=== PATIENT | female | born 1950 | race Caucasian/White ===

== ENCOUNTER 2018-03-18 12:18 | Inpatient (IN) | payer MEDICARE ==
[~2018-03-18] VITALS: Ht 165.1 cm; Wt 115.4 kg
[2018-03-18] VITALS (10 sets, daily range): BP systolic 91–139; BP diastolic 45–69
[~2018-03-18 12:18] MED LIST: ADVAIR DISK1 INH; ALBUTEROL SUL0.083 % IN; ALPRAZOLAM0.25 MG PO; BUMETANIDE0.5 MG PO; CETIRIZINE10 MG PO; DIFLUCAN100 M1 PO; DOXEPIN HCL50 MG PO; FOLIC ACID1 MG PO; GABAPENTIN300 MG PO; HYDROCO/APAP1 TA9 PO; LISINOPRIL20 MG PO; Levaquin PO; METOPROL TAR100 MG PO; METOPROL TAR25 MG PO; MUCINEX600 MG PO; NORCO1 TA1 PO; OMEPRAZOLE20 MG PO; OXYBUTYNIN5 MG PO; PERCOCET 5/325M1 TAB PO; PREDNISONE10 MG PO; ROBITUSSIN AC10 ML PO; SINGULAIR PO; STERAPRED DS10 MG PO; VENTOLIN HFA IN; VITAMIN D-35000 UNIT PO; WELLBUTRIN150 M1 PO; XARELTO10 MG PO; XELJANZ XR11 MG; ZESTRIL40 MG PO; ZOLOFT50 MG PO
--- NOTE | 2018-03-18 12:30 | NUR ---
PT STATES THAT SHE HAD AN INFUSION FOR ARTHIRITIS (RITUXAN) ON TUESDAY, TUESDAY NIGHT PT BEGAN HAVING DIRRAHEA, TUESDAY VOMITING BEGAN AND BEGAN HAVING A FEVER ON 03/17/18. PT STATES SHE HAS DIRRAHEA UP TO 5 TIMES A DAY. PT DENIES ANY C/P, SOB OR WEAKNESS. PT STATES BEING UNABLE TO KEEP FOOD DOWN. PT IS AOX4.
[2018-03-18 12:51] LABS: HEMATOCRIT 36.6 % (37.0-47.0); HEMOGLOBIN 11.5 g/dl (12.0-16.0); IMMATURE GRANULOCYTES 0.5 % (0.0-5.0); MEAN CELL VOLUME 92.9 fL CALC (80.0-100.0); MEAN CORPUSCULAR HGB 29.2 pG CALC (26.0-32.0); MEAN CORPUSCULAR HGB CONC 31.4 g/L CALC (32.0-36.0); NEUT# 15.22 thou/uL (2.00-7.15); RED BLOOD COUNT 3.94 mill/uL (4.20-5.60); RED CELL DISTRI WIDTH 14.6 % (11.5-15.5)
[2018-03-18 13:05] LABS: ALBUMIN 3.8 g/dL (3.2-5.0); ALKALINE PHOSPHATASE 109 u/l (38-126); ANION GAP 18 (6-22 (CALC)); BILIRUBIN, TOTAL 0.4 mg/dL (0.0-1.4); BUN 25 mg/dL (8-23); BUN/CREATININE RATIO 24 (12-20 (CALC)); CARBON DIOXIDE 24 mmol/l (22-30); CHLORIDE 103 mmol/l (95-108); GFR 56 ML/MIN (>=60 (CALC)); GFR FOR AFR.AMER. > 60 ML/MIN (>=60 (CALC)); LIPASE 23 u/l (23-300); MAGNESIUM 1.6 mg/dL (1.6-2.3); POTASSIUM 3.9 mmol/l (3.5-5.1); SGOT/AST 21 u/l (9-36); SGPT/ALT 32 u/l (11-66); SODIUM 141 mmol/l (137-146); TOTAL PROTEIN 6.7 g/dL (6.3-8.2)
--- NOTE | 2018-03-18 13:28 | NUR ---
PT ON STRETCHER, IV'S RUNNING IN 3 IV'S, ALL IV'S PATENT WITHOUT PAIN OR EDEMA. PT STATES NAUSEA HAS DECREASED WITH ZOFRAN, PT CONTINUED TO BE PLACED IN [place] POSITION. NO CHANGES IN LOC. NO COMPLAINTS STATED ABOUT POSITIONING OR FEELINGS.
[2018-03-18] MEDS ORDERED: MULTIVITAMI3 (13:53)
[2018-03-18 14:00] LABS: INFLUENZA A NONE DETECTED (NONE DETECT); INFLUENZA B NONE DETECTED (NONE DETECT)
--- NOTE | 2018-03-18 14:03 | NUR ---
PT TO CT ON MONITIOR WITH RN
[2018-03-18 14:05] LABS: URINE BILIRUBIN - DIPSTICK NEGATIVE (NEGATIVE); URINE BLOOD DIPSTICK NEGATIVE (NEGATIVE); URINE COLOR YELLOW; URINE GLUCOSE - DIPSTICK NEGATIVE (NEGATIVE); URINE KETONE NEGATIVE (NEGATIVE); URINE PH 5.5 (4.5-8.0); URINE PROTEIN - DIPSTICK NEGATIVE (NEG-TRACE); URINE UROBILINOGEN - DIPSTICK 0.2 E.U./dL (0.2)
--- NOTE | 2018-03-18 15:03 | NUR ---
PT ON STRECHER, NO COMPLAINTS OR CHANGES STATED
--- NOTE | 2018-03-18 15:10 | NUR ---
CENTRAL LINE PLACED BY MD- VERIFIED PLACEMENT WITH XRAY
[2018-03-18 15:56] LABS: URINE CLARITY TURBID; URINE LEUK ESTERASE SMALL (NEGATIVE); URINE NITRITE - DIPSTICK POSITIVE (Negative)
--- NOTE | 2018-03-18 16:05 | NUR ---
PT RESTING ON STRETCHER WITH FAMILY AT BEDSIDE. FLUIDS AND MEDICATIONS RUNNING, NO COMPLAINTS STATED AT THIS TIME.
[2018-03-18 16:11] LABS: URINE SQUAMOUS EPITHELIAL CELL FEW EPI/hpf (0-FEW); URINE WBC 20-50 WBC/hpf (0-5)
[2018-03-18 16:12] LABS: URINE BACTERIA MANY hpf
--- NOTE | 2018-03-18 16:50 | NUR ---
CHELE SURESH CALLED FOR REPORT. REPORT GIVEN- PT ACCEPTED. AWAITING ACCEPTING PHYSICAN ORDERS.
--- NOTE | 2018-03-18 17:21 | NUR ---
PT RESTING ON STRETCHER STATES THAT SHE IS IN ALOT OF PAIN FROM RA SYMPTOMS MD NOTIFIED
--- NOTE | 2018-03-18 17:24 | NUR ---
unable to scan zofran. zofran 4mg adminstered via iv
--- NOTE | 2018-03-18 17:42 | NUR ---
PT ARRIVED TO ICU VIA STRETCHER FROM ER. BEDSIDE REPORT RECIEVED FROM KERWIN EVANS. PT ALERT AND ORIENTED X 3, ABLE TO MAKE NEEDS KNOW. PERRL, T-100.4, P-82, RR-24, B/P 107/55. PT STATES ALLERGY TO SULFA DRUGS. PT CONTINUES WITH TRIPLE LUMEN TO RIJ WITH LEVOPHED @11MCG/KG/MIN & NS @ 200ML/HR. PT CONTINUES WITH 18G & 20G TO RAC/SL AND 18G TO LAC/SL. NO S/S OF INFILTRATION AT ANY SITE. PT REPORTS LEFT ELBOW PAIN "8" ON SCALE OF 1-10, PT MEDICATED IN ER. 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 BLE WITH MERISSA'S INTACT. LS DIMINISHED THROUGHOUT, BSX4 ACTIVE, PT REPORT LAST WATERY BM 8-3-18. PT DENIES N/V AT THIS TIME. PT DENIES SOB, CHEST PAIN OR DISTRESS AT THIS TIME. O2@2LPM VIA NC WITH SA02@ 100%.PT EDUCATED CLIENT SERVICES ANALYST LIGHT, MEDICAL EQUIP, TV, AND UNIT. BED IN LOWEST POSITION, CALL LIGHT IN REACH, WILL MONITOR.
--- NOTE | 2018-03-18 17:53 | NUR ---
Admission Note Report Given to: CHELE SURESH Transported by: Wheelchair X Stretcher Transported with: X Nurse Transporter X Patent IV X O2 X Consultant Intern TRANSPORTED TO ICU 8 WITHOUT INCIDENT
--- NOTE | 2018-03-18 18:30 | NUR ---
FAMILY AT BEDSIDE
--- NOTE | 2018-03-18 18:42 | NUR ---
DR. BENJAMIN NOTIFIED OF PT PAIN, NEW ORDERS RECIEVED.
--- NOTE | 2018-03-18 19:10 | NUR ---
awake. no resp distress. o2 cont per nc. equipment monitor phototypesetting shows sinus rhythm. rij site in place. #18 rac #20 rac & #18 lac all are saline locks. ns infusing @ 200cchr levo infusing @ 11mcg/kg/min. po fluids encouraged & juan pablo well. fall precautions cont. family @ bedside.
--- NOTE | 2018-03-18 20:15 | NUR ---
t 101.5. tylenol 650mg po given. po fluids encouraged & juan pablo well.
--- NOTE | 2018-03-18 20:15 | NUR ---
roxicodone 5mg po given per request for pain.
--- NOTE | 2018-03-18 20:45 | NUR ---
up to bsc x2 & max assist. voided well.
--- NOTE | 2018-03-18 21:00 | NUR ---
temp 101.8. po fluids encouraged.
--- NOTE | 2018-03-18 21:20 | NUR ---
dr wallace called this fiction and nonfiction prose writer. updated on pts condition. orders rec'd.
--- NOTE | 2018-03-18 22:00 | NUR ---
eyes closed. no apparent distress.
[2018-03-19] VITALS (28 sets, daily range): BP systolic 107–161; BP diastolic 42–83
--- NOTE | 2018-03-19 00:01 | NUR ---
eyes closed. no resp diff. o2 cont per nc.
--- NOTE | 2018-03-19 02:30 | NUR ---
up to bsc with MAX assist x2. has gen joint discomfort. po fluids taken well.
--- NOTE | 2018-03-19 03:15 | NUR ---
c/o joint pain. roxicodone 5mg po given.
--- NOTE | 2018-03-19 04:00 | NUR ---
lab here. blood drawn.
[2018-03-19 05:04] LABS: HEMATOCRIT 32.5 % (37.0-47.0); IMMATURE GRANULOCYTES 0.8 % (0.0-5.0); MEAN CELL VOLUME 94.8 fL CALC (80.0-100.0); MEAN CORPUSCULAR HGB 29.2 pG CALC (26.0-32.0); MEAN CORPUSCULAR HGB CONC 30.8 g/L CALC (32.0-36.0); NEUT# 17.05 thou/uL (2.00-7.15); RED BLOOD COUNT 3.43 mill/uL (4.20-5.60); RED CELL DISTRI WIDTH 14.7 % (11.5-15.5)
--- NOTE | 2018-03-19 05:30 | NUR ---
up to bsc w MAX assist x2. has increasing rheumatoid pain thruput.
--- NOTE | 2018-03-19 06:45 | NUR ---
RECIEVED REPORT FROM DOROTHY RUFFIN. ASSUMED PT CARE.
--- NOTE | 2018-03-19 07:15 | NUR ---
PT ALERT AND ABLE TO MAKE NEEDS KNOWN. PERRL, PT CONTINUES WITH SR WITH OCCAS. PAC/PVC ON TELEMETRY. T-100.7, HR- 97, RR-22, B/P-151/62, SA02 97% ON LM VIA NC. LS WITH SCATTERED WHEEZING THROUGHOUT, NO COUGH NOTED. BSX4 ACTIVE. PT DENIES N/V AT THIS TIME. PT WITH DEPENDENT EDEMA NOTED IN BUE, ELEVATED ON PILLOWS. PT WITH WEAK PATTERNATOR BILAT. TLC @ RIJ WITH NS @ 200ML/HR, NO S/S OF INFILTRATION NOTED. 18G @ RAC, 20G@ RAC, 18G@LAC WITH SL, FLUSHES WITHOUT DIFFICULTY, NO S/S OF INFILTRATION NOTED AT THIS TIME. BED IN LOWEST POSITION, CALL LIGHT IN REACH, WILL MONITOR.
--- NOTE | 2018-03-19 07:30 | NUR ---
PT MEDICATED WITH TYLENOL FOR ELEVATED TEMP AND XANAX PER PT REQUEST FOR ANXIETY. ORDERED. PT TOLERATED WELL, COOL COMPRESS ON FOREHEAD. CALL LIGHT IN REACH, WILL MONITOR.
--- NOTE | 2018-03-19 07:52 | NUR ---
Vancomycin consult Age: 67 years Weight: 112.2 kg Height: 165.1 cm Gender: Female SCR: 1 mg/dl Dosing weight: 79.08 kg IBW: 57.00 kg CRCL (ml/min): 50.5 Pedro (hr-1): 0.046 Half-life (hrs): 15.07 Vd (liters): 78.54 (factor: 0.7 L/kg) Vancomycin 1 gm Q12H to produce a predicted peak of 29 mcg/ml and a predicted trough of 18 mcg/ml based on (Population-based pharmacokinetic analysis).
--- NOTE | 2018-03-19 08:15 | NUR ---
PT SISTER CALLED, CODE RECIEVED, UPDATE GIVEN.
--- NOTE | 2018-03-19 08:30 | NUR ---
REASSESSED FOR TYL. PT TEMP 99.7, COOL CLOTH ON FOREHEAD REPLACED, WILL CONTINUE TO MONITOR. PT STATES FEELING ALITTLE BETTER. RESTING WITH EYES CLOSED. CALL LIGHT IN REACH. WILL MONITOR.
--- NOTE | 2018-03-19 09:30 | NUR ---
IV site 20G @ RAC discontinued, cath intact. No edema , no redness, voices no discomfort.
--- NOTE | 2018-03-19 09:30 | NUR ---
IV site 18G TO RAC discontinued, cath intact. No edema , no redness, voices no discomfort.
--- NOTE | 2018-03-19 10:00 | NUR ---
PT ASSISTED TO BSC, FULL LINEN CHANGE AND COMPLETE BATH WITH BARON CARE GIVEN. PT TOLERATED WELL. PT CONTINUES WITH PAIN, AND DEPENDENT EDEMA TO BUE.. PT ASSISTED BACK TO BED WITH CALL LIGHT IN REACH. WILL MONITOR.
--- NOTE | 2018-03-19 10:15 | NUR ---
PT AT BEDSIDE, SISTER AT BEDSIDE FOR VISIT.
--- NOTE | 2018-03-19 11:53 | NUR ---
DIETARY ON UNIT. PT TRAY SET UP. AFEBRILE. CALL LIGHT IN REACH. WILL MONITOR
--- NOTE | 2018-03-19 14:18 | NUR ---
PT RESTING IN BED, PT MEDICATED FOR PAIN AND ANXIETY, PRN ORDERED PER REQUEST. PT NOTED WITH INCREASED EDEMA TO LEFT HAND, ELEVATED ON PILLOW. PT WEDDING BAND REMAIN ON HAND, NO DISCOLORATION, PT DENIES DISCOMFORT. EDUCATED PT ON RISK OF RING REMAINING ON, PT STATES AT THIS TIME " i DO NOT WANT TO REMOVE OR CUT OFF, THIS HAS HAPPENED BEFORE AND IT WILL BE OK." PT STATES SHE WILL NOTIFY STAFF IF STARTS TO CAUSE DISCOMFORT OR LOSS OF SENSATION. PT CONTINUES WITH IV INFUSING NS @ 200ML/HR TO RIJ. NO S/S OF INFILTRATION NOTED AT THIS TIME. CALL LIGHT IN REACH, WILL CONTINUE TO MONITOR.
--- NOTE | 2018-03-19 15:08 | NUR ---
NEW ORDERS RECIEVED.
--- NOTE | 2018-03-19 15:40 | NUR ---
PT MEDICATED FOR PAIN OF "9" ON 1-10 SCALE WITH PRN ORDERED. PT TOLERATED WELL, WILL MONITOR.
--- NOTE | 2018-03-19 16:10 | NUR ---
PT RESTING IN BED, PT STATES PAIN DOWN TO "3 OR 4" ON 1-10 SCALE. CALL LIGHT IN REACH. WILL MONITOR.
--- NOTE | 2018-03-19 17:00 | NUR ---
DR. BENJAMIN AT BEDSIDE FOR ASSESSMENT AND TO DISCUSS PLAN OF CARE. PT FAMILY REMAINS AT BEDSIDE.
--- NOTE | 2018-03-19 17:30 | NUR ---
ASSISTED PT WITH BEDPAN, VOIDED 175ML. PT RESTING IN BED WITH CALL LIGHT IN REACH.
--- NOTE | 2018-03-19 18:25 | NUR ---
PT FAMILY AT BEDSIDE, PT OFFERS NO COMPLAINTS AT THIS TIME. CALL LIGHT IN REACH, WILL CONTINUE TO MONITOR,
--- NOTE | 2018-03-19 19:10 | NUR ---
awake. no resp diff. o2 cont per nc. hairspring adjuster shows sinus rhythm pacs pvcs. rij #18lac saline locks. po fluids taken well. voids per bedpan. fall precautions cont. family @ bedside.
--- NOTE | 2018-03-19 22:00 | NUR ---
voided per bedpan for 50cc
--- NOTE | 2018-03-19 23:30 | NUR ---
requested bedpan. encouraged pt to void per bsc to ensure an empty bladder. up to bsc x2 assists. voided well.
[2018-03-20] VITALS (10 sets, daily range): BP systolic 103–177; BP diastolic 47–86
--- NOTE | 2018-03-20 02:00 | NUR ---
resting quietly. resps even & unlabored. o distress. o2 cont.
--- NOTE | 2018-03-20 04:00 | NUR ---
blood drawn & sent to lab.
[2018-03-20 04:21] LABS: HEMOGLOBIN 8.7 g/dl (12.0-16.0); IMMATURE GRANULOCYTES 0.7 % (0.0-5.0); MEAN CELL VOLUME 94.3 fL CALC (80.0-100.0); MEAN CORPUSCULAR HGB 29.3 pG CALC (26.0-32.0); MEAN CORPUSCULAR HGB CONC 31.1 g/L CALC (32.0-36.0); NEUT# 10.23 thou/uL (2.00-7.15); RED BLOOD COUNT 2.97 mill/uL (4.20-5.60); RED CELL DISTRI WIDTH 14.8 % (11.5-15.5)
[2018-03-20 04:34] LABS: ANION GAP 12 (6-22 (CALC)); BUN 8 mg/dL (8-23); BUN/CREATININE RATIO 11 (12-20 (CALC)); CARBON DIOXIDE 23 mmol/l (22-30); CHLORIDE 107 mmol/l (95-108); CREATININE 0.7 mg/dL (0.5-1.0); GFR > 60 ML/MIN (>=60 (CALC)); GFR FOR AFR.AMER. > 60 ML/MIN (>=60 (CALC)); POTASSIUM 3.8 mmol/l (3.5-5.1); SODIUM 138 mmol/l (137-146)
--- NOTE | 2018-03-20 06:00 | NUR ---
up to bsc then to chair. juan pablo pedro.
--- NOTE | 2018-03-20 06:45 | NUR ---
RECIEVED REPORT FROM DOROTHY RUFFIN. ASSUMED PT CARE.
--- NOTE | 2018-03-20 07:30 | NUR ---
PT SITTING IN RECLINER, A&OX3, ABLE TO MAKE NEEDS KNOWN.PERRL. PT SR ON TELEMETRY, HR- 89, B/P- 152/66, T- 98.6, SA02@96% ON 2LPM VIA NC. PT CONTINENT OF B&B. ABDOMEN SOFT, NON-TENDER, BSX4 ACTIVE. PT WITH NOTABLE LESS EDEMA TO BUE. PT CONTINUES TO BE MAX ASSIST WITH TRANSFERS. PT STATES PAIN "9" ON 1-1O SCALE "EVERYWHERE" BRITTNEY. BILAT ANKLES. TL @ RIJ FLUSHED WITHOUR DIFFICULTY NOTED AND SL. NO S/S OF INFILTRATION OR INFECTION AT SITE. CALL LIGHT IN REACH, WILL CONTINUE TO MONITOR.
--- NOTE | 2018-03-20 08:05 | NUR ---
DIETARY ON UNIT, BREAKFAST TRAY SET UP.
--- NOTE | 2018-03-20 09:15 | NUR ---
ASSISTED PT TO BSC, THEN BACK TO BED. CALL LIGHT IN REACH. WILL MONITOR.
--- NOTE | 2018-03-20 09:40 | NUR ---
FAMILY ON UNIT AT BEDSIDE.
--- NOTE | 2018-03-20 10:15 | NUR ---
DR. HIGGINBOTHAM AT BEDSIDE FOR ASSESSMENT AND TO DISCUSS PLAN OF CARE. NEW ORDERS RECIEVED.
--- NOTE | 2018-03-20 10:52 | NUR ---
PT OFF UNIT TO MRI.
--- NOTE | 2018-03-20 11:52 | NUR ---
PT BACK ON UNIT FROM MRI, ASSISTED BACK TO RECLINER , LUNCH ARNULFO SET UP . PT TOLERATED WELL. CALL LIGHT IN REACH, WILL MONITOR.
--- NOTE | 2018-03-20 14:00 | NUR ---
PT RESTING IN BED WITH EYES CLOSED, PT OFFERS NO COMPLAINTS AT THIS TIME. CALL LIGHT IN REACH, WILL MONITOR.
--- NOTE | 2018-03-20 16:00 | NUR ---
PT RESTING IN BED, FAMILY AT BEDSIDE. CALL LIGHT IN REACH, WILL MONITOR.
--- NOTE | 2018-03-20 18:22 | NUR ---
PT ASSISTED TO BSC, THEN BACK TO BED, PT TOLERATED WELL. CALL LIGHT IN REACH, WILL MONITOR.
--- NOTE | 2018-03-20 20:15 | NUR ---
SITTING IN RECLINER CHAIR, WITH LEGS ELEVATED. A/O X3, RESPIRATIONS EVEN AND UNLABORED ON O2 @2L VIA NC, LUNG SOUNDS CLEAR WITH DIMINISHED BASES BILAT. TRIPPLE LUMEN TO RIGHT IJ, FLUSHED WITH NO COMPLICATIONS. C/O PAIN TO RIGHT ANKLE WHEN OUT OF BED, DISCUSSED ROXICODONE ORDERED, VOICES UNDERSTANDING. HEART MONITOR SR 90'S. PO FLUIDS IN REACH, ENCOURAGED TO USE CALL LIGHT FOR ASSISTANCE, WILL CONTINUE TO MONITOR.
--- NOTE | 2018-03-20 22:19 | NUR ---
OUT OF RECLINER CHAIR TO BSC WITH MAX ASSISTANCE, VOIDING 100ML OF CLEAR YELLOW URINE, THEN TO BED. CALL LIGHT IN REACH. WILL CONTINUE TO MONITOR.
[2018-03-21] VITALS (12 sets, daily range): BP systolic 117–167; BP diastolic 61–85
--- NOTE | 2018-03-21 01:08 | NUR ---
JANIYA PROVIDED FOR DRY COUGH AT THIS TIME. OOB TO BSC WITH CHAZ URIBE'S ASSISTANCE.
--- NOTE | 2018-03-21 05:25 | NUR ---
MORNING BLOOD WORK DRAWN FROM RIGHT IJ WITH GREAT BLOOD RETURN.
[2018-03-21 05:56] LABS: HEMATOCRIT 26.3 % (37.0-47.0); HEMOGLOBIN 8.1 g/dl (12.0-16.0); MEAN CELL VOLUME 94.3 fL CALC (80.0-100.0); MEAN CORPUSCULAR HGB CONC 30.8 g/L CALC (32.0-36.0); RED BLOOD COUNT 2.79 mill/uL (4.20-5.60); RED CELL DISTRI WIDTH 14.7 % (11.5-15.5)
[2018-03-21 06:07] LABS: ANION GAP 12 (6-22 (CALC)); BUN 10 mg/dL (8-23); BUN/CREATININE RATIO 14 (12-20 (CALC)); CARBON DIOXIDE 27 mmol/l (22-30); CHLORIDE 104 mmol/l (95-108); CREATININE 0.7 mg/dL (0.5-1.0); GFR FOR AFR.AMER. > 60 ML/MIN (>=60 (CALC)); POTASSIUM 4.3 mmol/l (3.5-5.1); SODIUM 138 mmol/l (137-146)
[2018-03-21 06:22] LABS: GFR > 60 ML/MIN (>=60 (CALC))
--- NOTE | 2018-03-21 06:45 | NUR ---
RECIEVED REPORT FROM DOROTHY BAILEY. ASSUMED PT CARE.
--- NOTE | 2018-03-21 07:45 | NUR ---
PT ALERT AND ABLE TO MAKE NEEDS KNOWN. SR WITH OCCASIONAL PAC'/PVC'S NOTED ON TELEMETRY.PERRL, HR-68, B/P-157/87, T-97.4, RR-24, SA02@97% ON 2PLM VIA NC. LS WITH AUDIBLE WHEEZING THROUGHOUT. CONTINENT ON B&b. ABDOMEN SOFT, NON- TENDER. SKIN CDI, R ANKLE SWOLLEN D/T RH FLARE UP (PER PT), ICE PACK PROVIDED PER PT REQUEST. TL TO RIJ SL , FLUSHES WITHOUT DIFFICULTY, NO S/S OF INFILTRATION OR INFECTION AT SITE. CALL LIGHT IN REACH, WILL MONITOR.
--- NOTE | 2018-03-21 08:04 | NUR ---
PT MEDICATED FOR PAIN "9 " ON 1-10 SCALE FOR JOINT PAIN, ORDERED. CALL LIGHT IN REACH, WILL MONITOR.
--- NOTE | 2018-03-21 08:40 | NUR ---
DR. HIGGINBOTHAM AT BEDSIDE FOR ASSESSMENT AND TO DISCUSS PLAN OF CARE.
--- NOTE | 2018-03-21 09:30 | NUR ---
FAMILY AT BEDSIDE, MRI/MRCP RESULTS GIVEN TO PT PER PT REQUEST AND WITH 'S CONSENT, AUTHORAZTION SIGNED BY PT AND PLACED IN CHART. FAMILY ALSO REQUEST PT IS TRANSFERRED TO [facility].
--- NOTE | 2018-03-21 09:50 | NUR ---
DOUGLAS IN NOTIFIED OF CHOICE FOR TRANSFER. "[facility]".
--- NOTE | 2018-03-21 11:00 | NUR ---
MAGNOLIA COLE AT BEDSIDE TO [facility] PLAN OF CARE/DISCHARGE.
--- NOTE | 2018-03-21 12:10 | NUR ---
PT UP TO BSC, COMPLETE BATH, BARON CARE AND MOUTHCARE PROVIDED, FULL LINEN CHANGE. PT THEN ASSISTED TO RECLINER, CALL LIGHT IN REACH, WILL MONITOR.
--- NOTE | 2018-03-21 12:12 | NUR ---
PT RESTING IN RECLINER, 02@2PLM VIA NC CONTINUES. PT OFFERS NO COMPLAINTS AT THIS TIME. CALL LIGHT IN REACH, WILL MONITOR.
--- NOTE | 2018-03-21 13:16 | NUR ---
PT FAMILY BRINGING IN HIGH SUGAR DRINKS. PT EDUCATED ON THE RISKS OF DRINKING REGARDS TO DIET AND DIABETES STABILITY. PT VERBALIZED UNDERSTANDING AND STATED HE WOULDNT DRINK THEM HERE.
--- NOTE | 2018-03-21 13:30 | NUR ---
DR. HIGGINBOTHAM AT BEDSIDE TO [facility] PLAN OF CARE AND DISCHARGE INSTRUCTIONS.
--- NOTE | 2018-03-21 13:51 | NUR ---
CALLED TO SPEAK WITH PT.
--- NOTE | 2018-03-21 13:53 | NUR ---
ASSISTED PT TO BSC, LG BM, SAMPLE OBTAINED FOR OCCULT BLOOD. BARON CARE PROVIDED, PT ASSISTED BACK TO RECLINER, ICE PACK REAPPLIED PER PT REQUEST TO RT ANKLE. CALL LIGHT IN REACH. WILL MONITOR.
--- NOTE | 2018-03-21 14:00 | NUR ---
IV site discontinued, cath intact. No edema , no redness, voices no discomfort.
--- NOTE | 2018-03-21 16:00 | NUR ---
assisted pt to bsc,then assisted back to recliner, call light in reach. pt contniues on 02@2plm via oh. pt continues with a non-productive dry cough. dr. [facility] notified. pt denies chest pain, sob or distress. afebrile. will monitor.
--- NOTE | 2018-03-21 18:15 | NUR ---
PT RESTING IN RECLINER, FAMILY AT BEDSIDE . PT OFFERS NO COMPLAINTS AT THIS TIME. WILL MONITOR
[2018-03-21 18:56] LABS: C. DIFFICILE TOXIN A&B NEGATIVE (NEGATIVE)
--- NOTE | 2018-03-21 19:15 | NUR ---
PT SITTING IN RECLINER CHAIR RESPIRATIONS EVEN AND UNLABORED ON O2 @2L VIA NC, O2 SAT 92%. OUT OF RECLINER CHAIR TO BSC WITH MAX ASSISTANCE, VOIDING CLEAR YELLOW URINE, THEN AMBULATING TO BED. A/O X3, C/O PAIN TO RIGHT ANKLE, RIGHT ANKLE ELEVATED ON TWO PILLOWS, REFUSES MERISSA HOSE TO RIGHT LEG AT THIS ITME. ZOSYN INFUSING TO RIGHT IJ WITH NO COMPLICATIONS. PO FLUIDS IN REACH. HEART MONITOR READING SR 70'S-80'S. ENCOURAGED TO USE CALL LIGHT FOR ASSISTANCE, WILL CONTINUE TO MONITOR.
--- NOTE | 2018-03-21 22:38 | NUR ---
OOB TO BSC WITH MAX ASSISTANCE, VOIDING 300ML CLEAR YELLOW URINE, THEN BACK TO BED. CALL LIGHT IN REACH.
[2018-03-22] VITALS (9 sets, daily range): BP systolic 135–176; BP diastolic 68–84
--- NOTE | 2018-03-22 00:35 | NUR ---
ZOSYN COMPLETELY INFUSED, FLUSHED TRIPPLE LUMEN IJ WITH NO COMPLICATIONS. RESPIRATIONS EVEN AND UNLABORED. LEFT LEG ELEVATED ON PILLOWS, CALL LIGHT IN REACH.
--- NOTE | 2018-03-22 02:00 | NUR ---
RESTING IN SEMIFOWLERS WITH EYES CLOSED, RESPIRATIONS EVEN AND UNLABORED ON O2 @2L VIA NC, O2 SAT 96%. CALL LIGHT IN REACH.
--- NOTE | 2018-03-22 04:55 | NUR ---
MORNING BLOOD WORK DRAWN FROM RIGHT IJ WITH GREAT BLOOD RETURN.
[2018-03-22 05:09] LABS: HEMATOCRIT 28.4 % (37.0-47.0); HEMOGLOBIN 8.8 g/dl (12.0-16.0); MEAN CELL VOLUME 93.4 fL CALC (80.0-100.0); MEAN CORPUSCULAR HGB 28.9 pG CALC (26.0-32.0); RED BLOOD COUNT 3.04 mill/uL (4.20-5.60); RED CELL DISTRI WIDTH 14.6 % (11.5-15.5)
--- NOTE | 2018-03-22 07:23 | NUR ---
REPORT FROM KERWIN BAILEY. INTRODUCED SELF TO PT. C/O RIGHT ANKLE PAIN/SWELLING STARTING LAST NIGHT. R FOOT PROPPED UP ON PILLOW, PT REMOVED MERISSA HOSE FROM RIGHT LEG. DENIES OTHER COMPLAINTS AT THIS TIME. LUNG SOUNDS CLEAR. PT ON 2L NC.
--- NOTE | 2018-03-22 07:43 | NUR ---
CATTLE DRIVER ASSISTED PT TO BSC THEN UP TO BED. BED MADE. BREAKFAST TRAY SERVED.
--- NOTE | 2018-03-22 08:40 | NUR ---
DR HIGGINBOTHAM AT BEDSIDE. PT WILL BE DC TO REHAB TODAY.
--- NOTE | 2018-03-22 09:39 | NUR ---
PT TO SHOWER WITH MARINE STEWARD.
--- NOTE | 2018-03-22 10:25 | NUR ---
PT RETURNED FROM SHOWER. ON MONITORS. WILL CONTINUE TO MONITOR UNTIL DC.
--- NOTE | 2018-03-22 11:54 | NUR ---
PT SITTING UP IN BED, EATING TRAY FOR LUNCH. BREATHING IS EVEN/UNLABORED.
[2018-03-22] MEDS ORDERED: OXYBUTYNIN5 MG PO (12:42)
[2018-03-22] MEDS ORDERED: ALPRAZOLAM0.25 MG PO (12:43)
[2018-03-22] MEDS ORDERED: STERAPRED DS10 MG PO (12:43)
[2018-03-22] MEDS ORDERED: LEVAQUIN750 MG PO (12:44)
[2018-03-22] MEDS ORDERED: LORTAB 5/3255 MG PO (13:07)
--- NOTE | 2018-03-22 14:06 | NUR ---
CENTRAL LINE REMOVED FROM PTS RIGHT IJ. PRESSURE DRESSING APPLIED TO AREA. PT INSTRUCTED TO LIE IN BED x1 HR AFTER REMOVAL.
--- NOTE | 2018-03-22 16:00 | NUR ---
PT TO BSC AGAIN, THEN UP IN CHAIR, DRESSED, READY TO GO TO REHAB. PT REQUESTED ANXIETY MED & SOMETHING "SIMPLE" FOR A HEADACHE. CASE MANAGMENT @BEDSIDE.
--- NOTE | 2018-03-22 16:55 | NUR ---
PT OUT THE DOOR WITH TRANSPORT IN STABLE CONDITION. PT STATES SHE WOULD BE FINE WITHOUT O2 FOR THE RIDE. PT OBSERVED x20 MINS W/OUT O2 WHILE IN THE ER. PT SHOWED NO S/S OF DISTRESS, HOLDING AT 96%. PT SENT WITH O2 TUBING, SUCCESS COACH STATED HE HAD 02 IN THE VAN IF SHE NEEDED IT. PT VERY HAPPY. STATES SHE "REALLY HAD EXCELLENT CARE HERE" AND "APPRECIATES ALL WE DID FOR HER".
--- NOTE | 2018-03-22 17:06 | NUR ---
TOOK HOME EVERYTHING BUT PTS CELLPHONE
--- NOTE | 2018-03-22 17:18 | NUR ---
CALLED REPORT TO ANTIONETTE @ [phone]
== END 2018-03-22 16:55 | DRG 871 ==
LOC: ED 12:18 → ED-I 15:16 → ED 15:34 → ICU 15:35
PROVIDERS: Family Medicine; Internal Medicine; ADMIT General Practice; ATTEND General Practice
PROC: 02HV33Z Insertion of Infusion Device into Superior Vena Cava, Percutaneous Approach (ICD-10-PCS; principal; 2018-03-18)
DX: A41.9 Sepsis, unspecified organism (principal); J18.9 Pneumonia, unspecified organism; N39.0 Urinary tract infection, site not specified; J44.0 Chronic obstructive pulmonary disease with (acute) lower respiratory infection; K52.1 Toxic gastroenteritis and colitis; J44.1 Chronic obstructive pulmonary disease with (acute) exacerbation; J84.9 Interstitial pulmonary disease, unspecified; R65.20 Severe sepsis without septic shock; M06.9 Rheumatoid arthritis, unspecified; I50.9 Heart failure, unspecified; K83.9 Disease of biliary tract, unspecified; D50.9 Iron deficiency anemia, unspecified; D63.8 Anemia in other chronic diseases classified elsewhere; E86.0 Dehydration; R73.03 Prediabetes; Z86.718 Personal history of other venous thrombosis and embolism; T45.1X5A Adverse effect of antineoplastic and immunosuppressive drugs, initial encounter; Z79.52 Long term (current) use of systemic steroids
CPT/HCPCS: G0328; J1650; J1756; Q9967

== ENCOUNTER → 2018-09-28 | Outpatient (REF) | payer MEDICARE ==
[~2018-09-28] MED LIST changes: +GINSENG; +HYDROXYCHLOROQ200 MG PO; +LASIX20 MG PO; +LEVAQUIN750 MG PO; +LORTAB 5/3255 MG PO; +MICRO-K10 ME1 PO; +MILLIPRED5 MG PO; +MULTIVITAMI3; +OXYCODONE/ACETA1 TA8; +VOLTAREN1%GEL TOP
[2018-09-28 15:08] LABS: HEMATOCRIT 35.5 % (37.0-47.0); HEMOGLOBIN 11.2 g/dl (12.0-16.0); IMMATURE GRANULOCYTES 0.7 % (0.0-5.0); MEAN CELL VOLUME 96.2 fL CALC (80.0-100.0); MEAN CORPUSCULAR HGB 30.4 pG CALC (26.0-32.0); MEAN CORPUSCULAR HGB CONC 31.5 g/L CALC (32.0-36.0); NEUT# 9.12 thou/uL (2.00-7.15); RED BLOOD COUNT 3.69 mill/uL (4.20-5.60); RED CELL DISTRI WIDTH 13.3 % (11.5-15.5)
[2018-09-28 15:27] LABS: ALBUMIN 4.1 g/dL (3.2-5.0); BILIRUBIN, TOTAL 0.5 mg/dL (0.0-1.4); C-REACTIVE PROTEIN 0.8 mg/dL (0-0.9); CREATININE 1.2 mg/dL (0.5-1.0); TOTAL PROTEIN 6.7 g/dL (6.3-8.2)
== END | disposition home or self-care (01) ==
LOC: LAB 14:24
PROVIDERS: ATTEND Internal Medicine Rheumatology
DX: M05.79 Rheumatoid arthritis with rheumatoid factor of multiple sites without organ or systems involvement (principal); Z79.899 Other long term (current) drug therapy

== ENCOUNTER → 2018-10-10 | Outpatient (REF) | payer MEDICARE ==
[2018-10-10 12:29] LABS: BARBITURATES NEGATIVE (NEGATIVE); COCAINE NEGATIVE (NEGATIVE); METHADONE NEGATIVE (NEGATIVE); OXCYCODONE NEGATIVE (NEGATIVE); TETRAHYDROCANNABIONOL NEGATIVE (NEGATIVE); TRICYLIC ANTIDEPRESSANTS NEGATIVE (NEGATIVE)
[2018-10-10 12:44] VITALS: BP 146/94
== END | disposition home or self-care (01) ==
LOC: PAIN/MGT 12:06
PROVIDERS: ATTEND Anesthesiology Pain Medicine
DX: Z51.81 Encounter for therapeutic drug level monitoring (principal); Z79.891 Long term (current) use of opiate analgesic

== ENCOUNTER → 2018-10-30 | Outpatient (REF) | payer MEDICARE | END | disposition home or self-care (01) | LOC: DI 11:49 | DX: M54.17 Radiculopathy, lumbosacral region (principal); M51.36 Other intervertebral disc degeneration, lumbar region; Z96.642 Presence of left artificial hip joint; Z47.1 Aftercare following joint replacement surgery ==

== ENCOUNTER 2019-06-02 19:26 | Emergency (ER) | payer MEDICARE ==
[~2019-06-02] VITALS: Ht 165.1 cm; Wt 104.5 kg
[2019-06-02] MEDS ORDERED: GENTAMICIN0.31 OS (19:54)
[2019-06-02 20:46] VITALS: BP 127/63
== END 2019-06-02 20:43 | disposition home or self-care (01) ==
LOC: ED 19:26
DX: S05.02XA Injury of conjunctiva and corneal abrasion without foreign body, left eye, initial encounter (principal); I10 Essential (primary) hypertension; W01.198A Fall on same level from slipping, tripping and stumbling with subsequent striking against other object, initial encounter; Y93.H2 Activity, gardening and landscaping; Y92.007 Garden or yard of unspecified non-institutional (private) residence as the place of occurrence of the external cause

== ENCOUNTER 2020-02-14 06:41 | Day surgery (SDC) | payer MEDICARE ==
[~2020-02-14 06:41] MED LIST changes: +ATIVAN1 M1 PO; +DITROPAN5 MG/TA1 PO; +ESOMEPRAZOLE MA40 MG PO; +FERROUS SULFAT325 MG PO; -GABAPENTIN300 MG PO; +GENTAMICIN0.31 OS; +METFORMIN500 M2 PO; +MULTI VIT PO; +NEURONTIN300 MG PO; +RINVOQ PO; +SPIRIVA HANDIH18 MCG IN; +TIZANIDINE2 MG PO; +WELLBUTRIN XL300 MG PO; +XANAX0.5 MG PO; +XYZAL ALLERGY 245 MG PO
[2020-02-14 08:54] VITALS: BP 144/67
== END 2020-02-14 09:12 | disposition home or self-care (01) ==
LOC: ENDO 06:41 → ORM 08:00 → ENDO 09:12
PROVIDERS: ATTEND Surgery
PROC: 0DBL8ZX Excision of Transverse Colon, Via Natural or Artificial Opening Endoscopic, Diagnostic (ICD-10-PCS; principal; 2020-02-14)
DX: D64.9 Anemia, unspecified (principal); D12.3 Benign neoplasm of transverse colon; K57.30 Diverticulosis of large intestine without perforation or abscess without bleeding; K64.8 Other hemorrhoids; I10 Essential (primary) hypertension; E11.9 Type 2 diabetes mellitus without complications; Z11.59 Encounter for screening for other viral diseases

== ENCOUNTER 2021-11-23 11:42 | Emergency (ER) | payer MEDICARE ==
[~2021-11-23] VITALS: Ht 162.6 cm; Wt 77.2 kg
[2021-11-23 11:52] VITALS: BP 149/71
[2021-11-23 12:01] VITALS: BP 145/70
[2021-11-23 12:30] VITALS: BP 149/73
[2021-11-23 12:45] VITALS: BP 137/67
[2021-11-23 13:00] VITALS: BP 142/63
[2021-11-23 14:30] VITALS: BP 142/63
[2021-11-23] MEDS ORDERED: MEDDOSEPAK PO (14:59)
[2021-11-23] MEDS ORDERED: HYDROCO/APAP1 TA9 PO (14:59)
== END 2021-11-23 15:12 | disposition home or self-care (01) ==
LOC: ED 11:42
DX: S70.02XA Contusion of left hip, initial encounter (principal); S20.212A Contusion of left front wall of thorax, initial encounter; W11.XXXA Fall on and from ladder, initial encounter; Y93.89 Activity, other specified; Y92.017 Garden or yard in single-family (private) house as the place of occurrence of the external cause; Z96.642 Presence of left artificial hip joint